=== PATIENT | female | born 1960 | race Caucasian/White ===

== ENCOUNTER 2022-09-20 09:07 | Outpatient (CLI) | payer OTHER | END 2022-09-20 09:27 | disposition home or self-care (01) | LOC: MAMO-SONO 09:07 | DX: N63.31 Unspecified lump in axillary tail of the right breast (principal); Z12.31 Encounter for screening mammogram for malignant neoplasm of breast ==

== ENCOUNTER 2022-12-08 18:33 | Emergency (ER) | payer OTHER ==
[~2022-12-08] VITALS: Ht 172.7 cm; Wt 56.7 kg
== END 2022-12-08 20:23 | disposition home or self-care (01) ==
LOC: ER 18:33
DX: S61.211A Laceration without foreign body of left index finger without damage to nail, initial encounter (principal); X58.XXXA Exposure to other specified factors, initial encounter; Y93.9 Activity, unspecified; Y92.9 Unspecified place or not applicable; Y99.9 Unspecified external cause status